=== PATIENT | female | born 1990 | race African-American/Black ===

== ENCOUNTER 2021-10-23 03:27 | Emergency (ER) | payer OTHER ==
[2021-10-23 03:53] VITALS: BMI 32.8
[2021-10-23 06:49] VITALS: BP 96/62; PULSE 74; TEMP 99.1
== END 2021-10-23 06:51 | disposition home or self-care (01) ==
LOC: JER 03:27
DX: S09.90XA Unspecified injury of head, initial encounter (principal); W22.8XXA Striking against or struck by other objects, initial encounter; Y07.03 Male partner, perpetrator of maltreatment and neglect; Y04.0XXA Assault by unarmed brawl or fight, initial encounter
CPT/HCPCS: 70450-TC; 70486-TC; 84703; 99285-25

== ENCOUNTER 2021-12-21 17:54 | Inpatient (IN) | payer OTHER ==
[2021-12-21 18:05] VITALS: BMI 32.5
[2021-12-21] MEDS ORDERED: GENTAMICIN IVPB ONE (18:23)
[2021-12-21] MEDS ORDERED: SODIUM CHLORIDE IVPB ONE (18:23)
[2021-12-21] MEDS ORDERED: SODIUM CHLORIDE 0.9% 1000 ML INFUS.BAG IV ONE (18:23)
[2021-12-21] MEDS ORDERED: AMPICILLIN - 2 GM in SODIUM CHLORIDE 100 ML IVPB ONE (18:29)
[2021-12-21] MEDS ORDERED: CLINDAMYCIN 900 MG PREMIX IVPB 900 MG/50 ML BAG IVPB ONE ×2 (18:29→18:49)
[2021-12-21] MEDS ORDERED: AMPICILLIN SODIUM 2 GM VIAL ONE (18:50)
[2021-12-21 19:09] LABS: BASO % 0.2 % (0-2.0); EOS % 0.8 % (0-4.5); HEMATOCRIT 36.8 % (32.4-45.2); HEMOGLOBIN 12.1 GM/dL (10.7-15.3); LYMPH % 18.2 % (8-40); MCH 29.7 pg (25.7-33.7); MCHC 32.7 g/dl (32.0-36.0); MEAN CELL VOLUME 90.9 fl (80-96); MEAN PLT VOLUME 8.1 fl (7.5-11.1); MONO % 3.5 % (3.8-10.2); NEUT % 77.3 % (42.8-82.8); PLATELET COUNT 353 10^3/uL (134-434); RBC 4.05 M/mm3 (3.60-5.2); RDW 14.1 % (11.6-15.6); WHITE BLOOD COUNT 13.4 K/mm3 (4.0-10.0)
[2021-12-21 19:26] LABS: CALCIUM 9.2 mg/dL (8.5-10.1)
[2021-12-21 19:27] LABS: BLOOD UREA NITROGEN 14.4 mg/dL (7-18)
[2021-12-21 19:31] LABS: BILIRUBIN,TOTAL 0.5 mg/dL (0.2-1); TOT PROT 7.6 g/dl (6.4-8.2)
[2021-12-21] MEDS ORDERED: ACETAMINOPHEN 500 MG TABLET (FP) PO PRN (21:14)
[2021-12-21] MEDS ORDERED: GENTAMICIN IVPB SCH (21:30)
[2021-12-21] MEDS ORDERED: AMPICILLIN - 2 GM in SODIUM CHLORIDE 100 ML IVPB SCH (21:30)
[2021-12-21] MEDS ORDERED: WATER IVPB SCH (21:30)
[2021-12-21] MEDS ORDERED: DEXTROSE 5% IVPB SCH (21:30)
[2021-12-22] MEDS ORDERED: AMPICILLIN SODIUM 2 GM VIAL ONE ×4 (01:07→19:49)
[2021-12-22] MEDS ORDERED: SODIUM CHLORIDE 100 ML IVPB ONE ×4 (01:08→19:49)
[2021-12-22] MEDS: AMPICILLIN - 2 GM in SODIUM CHLORIDE 100 ML IVPB SCH ×4 (01:32→20:08)
[2021-12-22] MEDS: CLINDAMYCIN 900 MG PREMIX IVPB 900 MG/50 ML BAG IVPB SCH ×3 (02:38→18:00)
[2021-12-22 08:23] LABS: BASO % 0.6 % (0-2.0); EOS % 2.5 % (0-4.5); HEMATOCRIT 33.5 % (32.4-45.2); HEMOGLOBIN 10.8 GM/dL (10.7-15.3); LYMPH % 21.7 % (8-40); MCH 29.6 pg (25.7-33.7); MCHC 32.4 g/dl (32.0-36.0); MEAN CELL VOLUME 91.5 fl (80-96); MEAN PLT VOLUME 7.8 fl (7.5-11.1); MONO % 6.5 % (3.8-10.2); NEUT % 68.7 % (42.8-82.8); PLATELET COUNT 309 10^3/uL (134-434); RBC 3.66 M/mm3 (3.60-5.2); RDW 14.1 % (11.6-15.6); WHITE BLOOD COUNT 8.1 K/mm3 (4.0-10.0)
[2021-12-22 08:40] LABS: BLOOD UREA NITROGEN 13.7 mg/dL (7-18); CALCIUM 8.7 mg/dL (8.5-10.1)
[2021-12-22 08:44] LABS: CREATININE 0.9 mg/dL (0.55-1.3)
[2021-12-22 08:45] LABS: BILIRUBIN,TOTAL 0.4 mg/dL (0.2-1); TOT PROT 6.2 g/dl (6.4-8.2)
[2021-12-22 08:50] LABS: ALBUMIN 3.1 g/dl (3.4-5.0)
[2021-12-22] MEDS ORDERED: DEXTROSE 5% IVPB SCH (20:00)
[2021-12-22] MEDS ORDERED: WATER IVPB SCH (20:00)
[2021-12-22] MEDS ORDERED: GENTAMICIN IVPB SCH (20:00)
[2021-12-22 22:06] VITALS: BP 108/57; PULSE 77; TEMP 98.3
== END 2021-12-22 22:15 | disposition home or self-care (01) | DRG 779 ==
LOC: JER 17:54 → JERFT 17:54 → JERBED 18:31 → J5S 22:50
PROVIDERS: ADMIT Obstetrics & Gynecology; ATTEND Obstetrics & Gynecology
DX: O03.0 Genital tract and pelvic infection following incomplete spontaneous abortion (principal); N73.0 Acute parametritis and pelvic cellulitis; O03.6 Delayed or excessive hemorrhage following complete or unspecified spontaneous abortion; O03.5 Genital tract and pelvic infection following complete or unspecified spontaneous abortion
CPT/HCPCS: 36415; 80053; 83605; 85025; 86850; 86900; 86901; 87040; 93005; 93010; 99285-25; C9803-CS; U0003; U0005

== ENCOUNTER 2022-04-23 04:56 | Emergency (ER) | payer OTHER ==
[2022-04-23 05:26] VITALS: BP 115/74; PULSE 78; RESP 17; TEMP 98.2; BMI 31.9
[2022-04-23] MEDS ORDERED: IBUPROFEN 600 MG TABLET (FP) PO ONE ×2 (09:28→09:43)
[2022-04-23] MEDS ORDERED: LIDOCAINE HCL 1%, 10 MG/ML (50 mL VIAL) SQ ONE (09:28)
== END 2022-04-23 11:28 | disposition home or self-care (01) ==
LOC: JER 04:56
DX: S91.201A Unspecified open wound of right great toe with damage to nail, initial encounter (principal); M79.641 Pain in right hand
CPT/HCPCS: 73110-TC-RT-FY; 73130-TC-RT-FY; 73660-TC-FY; 99284-25

== ENCOUNTER 2023-08-30 01:10 | Inpatient (IN) | payer OTHER ==
[2023-08-30 02:29] LABS: BASO % 0.6 % (0-2.0); EOS % 2.6 % (0-4.5); HEMATOCRIT 28.6 % (32.4-45.2); HEMOGLOBIN 9.4 GM/dL (10.7-15.3); LYMPH % 25.1 % (8-40); MCH 29.7 pg (25.7-33.7); MEAN CELL VOLUME 89.9 fl (80-96); MONO % 7.5 % (3.8-10.2); NEUT % 64.2 % (42.8-82.8); PLATELET COUNT 350 10^3/uL (134-434); RBC 3.18 M/mm3 (3.60-5.2); RDW 14.7 % (11.6-15.6); WHITE BLOOD COUNT 7.9 K/mm3 (4.0-10.0)
[2023-08-30] MEDS ORDERED: ELECTROLYTE-148 SOLN 500 ML IV ONE (02:35)
[2023-08-30] MEDS ORDERED: CITRIC ACID/SODIUM CITRATE 30 ML UNIT-DOSE CUP PO ONE ×2 (02:35→10:00)
[2023-08-30 02:38] VITALS: BMI 31.7
[2023-08-30 02:38] LABS: INR 1.03 (0.83-1.09)
[2023-08-30 02:41] LABS: ACTIVATED PTT 29.2 SECONDS (25.2-36.5)
[2023-08-30 02:51] LABS: POTASSIUM 3.9 mmol/L (3.5-5.1)
[2023-08-30 02:52] LABS: CALCIUM 8.4 mg/dL (8.5-10.1)
[2023-08-30 02:53] LABS: BLOOD UREA NITROGEN 12.6 mg/dL (7-18)
[2023-08-30 02:57] LABS: CREATININE 0.8 mg/dL (0.55-1.3)
[2023-08-30] MEDS ORDERED: ELECTROLYTE-148 SOLN 1,000 ML IV SCH (03:05)
[2023-08-30 05:39] LABS: HIV INTERPRETATION NEGATIVE (NEGATIVE)
[2023-08-30] MEDS ORDERED: IBUPROFEN 600 MG TABLET (FP) PO PRN ×2 (07:45→10:07)
[2023-08-30] MEDS ORDERED: ceFAZolin SODIUM 1 GM VIAL ONE (08:23)
[2023-08-30] MEDS ORDERED: SODIUM CHLORIDE 0.9% P/F 10 ML VIAL IJ ONE (08:23)
[2023-08-30] MEDS ORDERED: PHENYLEPHRINE HCL 10 MG/1 ML SINGLE DOSE VIAL ONE (08:40)
[2023-08-30] MEDS ORDERED: OXYTOCIN 10 UNITS/ML VIAL ONE ×2 (08:49→08:53)
[2023-08-30] MEDS ORDERED: MIDAZOLAM HCL 2 MG/2 ML SINGLE DOSE VIAL ONE (08:59)
[2023-08-30] MEDS ORDERED: ACETAMINOPHEN 325 MG TABLET (FP) PO PRN ×2 (09:13→10:07)
[2023-08-30] MEDS ORDERED: ONDANSETRON 4 MG/2 ML VIAL IVPUSH PRN (09:17)
[2023-08-30] MEDS ORDERED: morphine SULFATE/PF 1 MG/2 ML (2cc Syringe - QUVA) EP ONE (09:30)
[2023-08-30 09:46] LABS: CORD BASE EXCESS -5.3 mmol/L (0-2); CORD HCO3 19.6 mmHg (20-29); CORD PCO2 36.3 mmHg (30-78); CORD pH 7.35 (7.14-7.44)
[2023-08-30 09:49] LABS: CORD BASE EXCESS -3.3 mmol/L (0-2); CORD HCO3 23.6 mmHg (20-29); CORD PCO2 50.1 mmHg (30-78); CORD pH 7.291 (7.14-7.44)
[2023-08-30] MEDS ORDERED: OXYTOCIN 20 UNITS in 0.9% NS 20 UNIT/1,000 ML INFUS.BAG IV ONE (09:55)
[2023-08-30] MEDS: OXYTOCIN 20 UNITS in 0.9% NS 20 UNIT/1,000 ML INFUS.BAG IV SCH (10:00)
[2023-08-30] MEDS ORDERED: METHYLERGONOVINE MALEATE 0.2 MG/1 ML AMP IM PRN (10:07)
[2023-08-30] MEDS ORDERED: SIMETHICONE 80 MG TAB.CHEW (FP) PO PRN (10:07)
[2023-08-30] MEDS: CEFAZOLIN SODIUM 2 GM in DEXTROSE 5%-WATER 100 ML IVPB SCH ×2 (11:08→17:17)
[2023-08-30] MEDS: ACETAMINOPHEN 1000 MG/100 ML BAG IVPB PRN (11:15)
[2023-08-30] MEDS ORDERED: ACETAMINOPHEN INJECTION 100 ML IVPB ONE (11:17)
[2023-08-30 12:12] LABS: BASO % 0.5 % (0-2.0); EOS % 2.3 % (0-4.5); HEMOGLOBIN 11.1 GM/dL (10.7-15.3); LYMPH % 22.1 % (8-40); MCH 29.6 pg (25.7-33.7); MCHC 32.6 g/dl (32.0-36.0); MEAN CELL VOLUME 90.9 fl (80-96); MEAN PLT VOLUME 7.1 fl (7.5-11.1); MONO % 6.2 % (3.8-10.2); NEUT % 68.9 % (42.8-82.8); PLATELET COUNT 303 10^3/uL (134-434); RBC 3.74 M/mm3 (3.60-5.2); RDW 14.8 % (11.6-15.6); WHITE BLOOD COUNT 7.1 K/mm3 (4.0-10.0)
[2023-08-30] MEDS: IBUPROFEN 800 MG/8 ML IJ IVPB PRN (15:16)
[2023-08-30] MEDS ORDERED: oxyCODONE HCL 5 MG TABLET PO PRN ×2 (22:07)
[2023-08-31] MEDS: OXYTOCIN 20 UNITS in 0.9% NS 20 UNIT/1,000 ML INFUS.BAG IV SCH (00:53)
[2023-08-31] MEDS: CEFAZOLIN SODIUM 2 GM in DEXTROSE 5%-WATER 100 ML IVPB SCH ×2 (02:00→09:19)
[2023-08-31] MEDS: ACETAMINOPHEN 1000 MG/100 ML BAG IVPB PRN (02:19)
[2023-08-31] MEDS: IBUPROFEN 800 MG/8 ML IJ IVPB PRN (07:44)
[2023-08-31] MEDS: ENOXAPARIN NA (PORCINE) 40 MG/0.4 ML DISP.SYRIN SQ SCH (09:19)
[2023-08-31] MEDS ORDERED: BISACODYL 10 MG SUPP.RECT RC PRN ×2 (10:07→16:45)
[2023-08-31] MEDS ORDERED: METHYLERGONOVINE MALEATE 0.2 MG/1 ML AMP IM PRN (12:43)
[2023-08-31] MEDS ORDERED: ACETAMINOPHEN 325 MG TABLET (FP) PO PRN (12:43)
[2023-08-31] MEDS ORDERED: OXYTOCIN 20 UNITS in 0.9% NS 20 UNIT/1,000 ML INFUS.BAG IV SCH (12:45)
[2023-08-31] MEDS: SIMETHICONE 80 MG TAB.CHEW (FP) PO PRN ×2 (16:40→21:14)
[2023-08-31] MEDS ORDERED: oxyCODONE HCL 5 MG TABLET ONE (16:40)
[2023-08-31] MEDS ORDERED: oxyCODONE HCL 5 MG TABLET PO PRN ×2 (16:45)
[2023-08-31] MEDS: IBUPROFEN 600 MG TABLET (FP) PO PRN (21:14)
[2023-09-01] MEDS ORDERED: oxyCODONE HCL 5 MG TABLET PO PRN ×2 (00:43)
[2023-09-01] MEDS: IBUPROFEN 600 MG TABLET (FP) PO PRN ×3 (05:31→21:21)
[2023-09-01] MEDS: SIMETHICONE 80 MG TAB.CHEW (FP) PO PRN ×3 (05:31→21:21)
[2023-09-01 08:24] LABS: BASO % 0.4 % (0-2.0); EOS % 2.3 % (0-4.5); HEMATOCRIT 30.8 % (32.4-45.2); HEMOGLOBIN 10.4 GM/dL (10.7-15.3); LYMPH % 24.4 % (8-40); MCH 30.4 pg (25.7-33.7); MCHC 33.8 g/dl (32.0-36.0); MEAN CELL VOLUME 90.2 fl (80-96); MEAN PLT VOLUME 7.6 fl (7.5-11.1); MONO % 6.7 % (3.8-10.2); NEUT % 66.2 % (42.8-82.8); PLATELET COUNT 360 10^3/uL (134-434); RBC 3.42 M/mm3 (3.60-5.2); RDW 14.7 % (11.6-15.6); WHITE BLOOD COUNT 9.1 K/mm3 (4.0-10.0)
[2023-09-01] MEDS: ENOXAPARIN NA (PORCINE) 40 MG/0.4 ML DISP.SYRIN SQ SCH (09:36)
[2023-09-01] MEDS ORDERED: BISACODYL 10 MG SUPP.RECT RC PRN (12:43)
[2023-09-01 20:50] VITALS: RESP 18
[2023-09-02] MEDS: IBUPROFEN 600 MG TABLET (FP) PO PRN ×3 (05:42→21:06)
[2023-09-02] MEDS: ENOXAPARIN NA (PORCINE) 40 MG/0.4 ML DISP.SYRIN SQ SCH (10:37)
[2023-09-02] MEDS: SIMETHICONE 80 MG TAB.CHEW (FP) PO PRN ×2 (10:41→21:06)
[2023-09-03] MEDS: IBUPROFEN 600 MG TABLET (FP) PO PRN (10:01)
[2023-09-03] MEDS: SIMETHICONE 80 MG TAB.CHEW (FP) PO PRN (10:01)
[2023-09-03] MEDS: ENOXAPARIN NA (PORCINE) 40 MG/0.4 ML DISP.SYRIN SQ SCH (10:01)
[2023-09-03 10:18] VITALS: BP 98/63; PULSE 60; TEMP 98.1
== END 2023-09-03 13:30 | disposition home or self-care (01) | DRG 786 ==
LOC: JLDR 01:10 → J3W 11:50
PROVIDERS: ADMIT Obstetrics & Gynecology; ATTEND Obstetrics & Gynecology
PROC: 0DNU0ZZ Release Omentum, Open Approach (ICD-10-PCS; principal; 2023-08-30)
PROC: 10D00Z1 Extraction of Products of Conception, Low, Open Approach (ICD-10-PCS; 2023-08-30)
DX: O26.613 Liver and biliary tract disorders in pregnancy, third trimester (principal); K83.1 Obstruction of bile duct; O34.219 Maternal care for unspecified type scar from previous cesarean delivery; O99.62 Diseases of the digestive system complicating childbirth; K66.0 Peritoneal adhesions (postprocedural) (postinfection); O90.81 Anemia of the puerperium; Z37.0 Single live birth; Z3A.38 38 weeks gestation of pregnancy
CPT/HCPCS: 36415; 36600; 80048; 82803; 85025; 85610; 85730; 86780; 86850; 86900; 86901; 87389; 88307-TC; 94010